=== PATIENT | female | born 1995 | race African-American/Black ===

== ENCOUNTER 2018-02-15 14:58 | Emergency (ER) | payer BC ==
[~2018-02-15] VITALS: Ht 160 cm; Wt 61.7 kg
[2018-02-15 15:10] VITALS: BP 102/67; Ht 160 cm; Wt 61.7 kg
== END 2018-02-15 16:31 | disposition home or self-care (01) ==
LOC: ED 14:58
DX: R10.30 Lower abdominal pain, unspecified (principal)